=== PATIENT | female | born 2000 | race Caucasian/White ===

== ENCOUNTER 2022-05-24 17:40 | Emergency (ER) | payer BC ==
[~2022-05-24] VITALS: Ht 165.1 cm; Wt 59.1 kg
[2022-05-24 18:19] VITALS: BP 135/81; TEMP 98.2
[2022-05-24] MEDS ORDERED: DOXYCYCLINE 10100 MG PO (20:45)
[2022-05-24 21:02] VITALS: PULSE 98
== END 2022-05-24 21:03 | disposition home or self-care (01) ==
LOC: COL.ER 17:40
DX: J40 Bronchitis, not specified as acute or chronic (principal); Z87.411 Personal history of vaginal dysplasia